=== PATIENT | female | born 1935 | race Caucasian/White ===

== ENCOUNTER 2018-09-29 22:38 | Inpatient (IN) | payer MEDICARE, BC ==
[~2018-09-29] VITALS: Ht 152.4 cm; Wt 46.3 kg
--- NOTE | 2018-09-30 00:15 | NUR ---
ADMITTED THIS 83 YEARS OLD FEMALE FROM [facility]. PATIENT WAS PLACED ON 5150 HOLD DUE TO GRAVELY DISABLE UNABLE TO CARE FOR HER SELF WANDERING AROUND. PATIENT IS CONFUSED, REFUSED TO SIGN THE CONSENT PAPER, ADVISEMENT EXPLAIN AND SERVE TO THE PATIENT WITH HOSPITAL POLICY PATIENT DENIES ANY PAIN OR DISCOMFORT AT THIS TIME BODY ASSESSMENT IS DONE MULTIPAL BRUISES ON BOTH HAND AND BOTH LEG , LEFT LEG SKIN TEAR PIC IS TAKEN AND PLACED IN THE CHART, WOUND CARE ORDERED PT EVAL ORDERED PATIENT ASLEEP RIGHT NOW WILL CONTINUES TO MONITOR THE PATIENT FOR SAFETY AND FALL AND MAKE ROUND EVERY 15 MINS.
[2018-09-30 00:17] VITALS: BP 91/51
[2018-09-30] MEDS ORDERED: TEMAZEPAM 7.5 MG CAPSULE PO PRN (00:30)
[2018-09-30] MEDS ORDERED: MAG HYDROX/AL HYDROX/SIMETH 30 ML UDC PO PRN (00:30)
[2018-09-30] MEDS ORDERED: MAGNESIUM HYDROXIDE 30 ML UDC PO PRN (00:30)
[2018-09-30 08:10] VITALS: BP 152/68
--- NOTE | 2018-09-30 10:30 | NUR ---
WOUND CARE CONSULT: PT PRESENTS WITH STERI STRIPS TO LEFT LOWER LEG WITH SOME OOZING WELL SCABS AND SKIN TEARS TO RT LOWER LEG, ALL PRESENT ON ADMISSION. PT REFUSED TO HAVE STERI STRIPS REMOVED. RECOMMEND DPM CONSULT. PT IS INDEPENDENT WITH BED MOBILITY AND CONTINENT. WILL SEE PRN.
--- NOTE | 2018-09-30 12:30 | NUR ---
SW contacted pts Ten [phone] for collateral information and discharge planing. SW explained treatment plan and agreed with pts current treatment and stated she will return home once stable for discharge.
--- NOTE | 2018-09-30 13:30 | NUR ---
TREATMENT PLAN: SW discussed treatment plan with pt; pt refused to sign and stated, "I do not want to sign." SW stated she would come at a later time to have her sign her treatment plan and pt responded with, "I don't know if I will sign it when you come back either." SW will continue attempting to have pt sign her treatment plan or have pts sign if pt refuses after the third attempt.
[2018-09-30 15:14] VITALS: BP 157/78
[2018-09-30] MEDS ORDERED: AMLO5TAB9 PO (15:56)
--- NOTE | 2018-09-30 15:59 | NUR ---
GPS RN NOTE: DR COOPER NOTIFIED TO RECONCILED HOME MEDS
[2018-09-30 19:42] VITALS: BP 167/93
[2018-09-30] MEDS: LORAZEPAM 0.5 MG TABLET PO PRN (19:55)
--- NOTE | 2018-09-30 20:00 | NUR ---
GPS RN NOTES: PT/ C/O ANXIOUS RESTLESS PACING IN THE ROOM, ATIVAN 0.25 MG PO PRN GIVEN PER PT. REQUEST, WILL CONTINUE TO MONITOR.
--- NOTE | 2018-09-30 20:41 | NUR ---
GPS RN NOTES: PT. REFUSED TO TAKES SHOWER ENCOURAGED , STILL REFUSED , PT. STATED I DON'T WANT TAKING AT THIS TIME .
[2018-09-30] MEDS: risperiDONE 0.25 MG TABLET PO SCH (21:30)
[2018-09-30 22:13] VITALS: BP 135/80
[2018-10-01] MEDS: ACETAMINOPHEN 325 MG TABLET PO PRN ×2 (05:23→19:38)
--- NOTE | 2018-10-01 05:44 | NUR ---
GPS RN NOTES: UNABLE TO COLLECT URINE SPECIMEN, DUE TO PT.REFUSED PROVIDE URINE SPECIMEN,
--- NOTE | 2018-10-01 06:31 | NUR ---
GPS RN NOTES: PLACED CALL DR. PIÑA ,AND NOTIFIED DR. PIÑA REGARDING ABOUT THE NEW ADMISSION .
--- NOTE | 2018-10-01 07:11 | NUR ---
GPS RN NOTES: PT. RESTING IN HER BED , DENIES ANY DISCOMFORT AT THIS TIME , ENDORSE TO ONCOMING NURSE FOR CONTINUITY OF CARE.
[2018-10-01 08:00] VITALS: BP 125/55
[2018-10-01] MEDS: risperiDONE 0.25 MG TABLET PO SCH ×2 (09:09→20:50)
--- NOTE | 2018-10-01 09:37 | NUR ---
INITIAL DISCHARGE PLAN: Patient and pts Ten [phone] wish for pt to return home [address] [place] [address]. SW will help form a safe and proper discharge in collaboration with .
--- NOTE | 2018-10-01 10:59 | NUR ---
TREATMENT PLAN: SW discussed treatment plan with pt and after pt reviewed Tx plan; pt refused to sign due to not agreeing with psych diagnosis of Psychotic disorder, not otherwise specified. Pt stated, "I'm not psychotic I have depression, I'm not signing anything!" Pt threw the treatment plan at and became agitated.
--- NOTE | 2018-10-01 11:02 | NUR ---
SUPPORTIVE COUNSELING: SW discussed pts lack of insight into her mental illness. Pt does not acknowledge she has symptoms of yasmin and stated she is only depressed. SW explained the reason for her psych hospitalization and pt stated, "that is a lie, that did not happen, I'm just depressed." SW will continue encouraging medication compliance and milieu treatment. Pts mood was agitated with congruent affect. Pt was sitting on her bed with her arms crossed over her chest.
[2018-10-01 16:07] VITALS: BP 140/69
--- NOTE | 2018-10-01 19:39 | NUR ---
C/O PAIN LEFT LOWER LEG, AFTER DRESSING WAS DONE ON SAME LEG, TYLENOL 650 MG TAB PO GIVEN.
[2018-10-01 20:12] VITALS: BP 157/75
--- NOTE | 2018-10-01 20:51 | NUR ---
RESTORIL 7.5 MG CAP PO GIVEN FOR SLEEP, OFFERED AND PATIENT TOOK MEDICATION.
[2018-10-02] MEDS: LORAZEPAM 0.5 MG TABLET PO PRN (03:19)
--- NOTE | 2018-10-02 03:19 | NUR ---
ANXIOUS, UNABLE TO GO BACK TO SLEEP, ATIVAN 0.25 MG TAB PO GIVEN.
[2018-10-02] MEDS: ACETAMINOPHEN 325 MG TABLET PO PRN ×2 (03:22→18:41)
--- NOTE | 2018-10-02 03:23 | NUR ---
C/O BACK PAIN, TYLENOL 650 MG TAB PO GIVEN.
[2018-10-02 08:00] VITALS: BP 160/99
[2018-10-02] MEDS: risperiDONE 0.25 MG TABLET PO SCH (09:00)
--- NOTE | 2018-10-02 10:16 | NUR ---
TREATMENT PLANNING: SW discussed pts treatment plan with pts [facility], SW also went over medication list with pts and read Psychiatrist note. stated that he agrees with pts treatment plan and stated that psychiatrist evaluation was "on point."
--- NOTE | 2018-10-02 13:00 | NUR ---
CALL AND SPOKE TO
[2018-10-02 16:00] VITALS: BP 160/76
--- NOTE | 2018-10-02 18:33 | NUR ---
PATIENT C/O 10/10 BACK PAIN AND WRIST PAIN TYLENOL 650 MG PO GIVEN PER MD ORDER.
[2018-10-02 20:00] VITALS: BP 158/81
--- NOTE | 2018-10-02 20:00 | NUR ---
SEEN BY DR. GUTIERREZ, PATIENT WAS ORDERED FOR DISCHARGE TONIGHT.
--- NOTE | 2018-10-02 20:02 | NUR ---
PATIENT IS FOR DISCHARGE HOME TONIGHT PER DR. GUTIERREZ.
--- NOTE | 2018-10-02 20:03 | NUR ---
PAGED MACEY AMAYA. RE: DISCHARGE ORDER.
--- NOTE | 2018-10-02 20:50 | NUR ---
Nursing Discharge Note: 83 year old female discharged to home in stable condition, med compliant, cooperative with treatment plans. Patient denies si/hi and instructed to the closest ER if developing SI?HI. behavior improved. Educated patient about after care plan and copy provided. Returned personal belongings to patient. Patient was wheeled down by jig and fixture builder assigned at the time. Patient was accompanied by her . Patient refused to take photos of her skin.
--- NOTE | 2018-10-03 09:37 | NUR ---
DISCHARGE NOTE: Pt was discharged at 20:00 via private vehicle home to [address] [place] [address] [place] [address]. [facility] [phone] picked pt up from the hospital and transferred home. Per nursing notes pts denied suicidal/homicidal ideation and denied visual/auditory hallucinations. Pts mood was anxious with congruent affect. Pt was given a referral to follow up with mental health services [facility] [address] [place] [address]. [facility] [id number] where pt can walk in SAT-SAT 8:30 a.m. - 8:00 p.m and 8:30 a.m. - 5:00 p.m. Pt has a scheduled follow up appointment with Dr. Tamiko Bee [address] [place] [phone] on Saturday October 13, 2018 at 11:00am. The multidisciplinary exitcare form was done, printed, signed, and given to the patient.
== END 2018-10-02 20:40 | disposition home or self-care (01) | DRG 885 ==
LOC: GPS 23:56
PROVIDERS: ADMIT Psychiatry & Neurology Psychiatry; ATTEND Family Medicine
DX: F29 Unspecified psychosis not due to a substance or known physiological condition (principal); F41.9 Anxiety disorder, unspecified; Z73.6 Limitation of activities due to disability; E78.5 Hyperlipidemia, unspecified; I10 Essential (primary) hypertension; M48.00 Spinal stenosis, site unspecified; G47.00 Insomnia, unspecified; R26.2 Difficulty in walking, not elsewhere classified; D69.2 Other nonthrombocytopenic purpura; S81.812A Laceration without foreign body, left lower leg, initial encounter; X58.XXXA Exposure to other specified factors, initial encounter; Y92.9 Unspecified place or not applicable
CPT/HCPCS: 87081-TC